=== PATIENT | female | born 1940 | race Caucasian/White ===

== ENCOUNTER 2023-01-06 08:27 | Day surgery (SDC) | payer MEDICARE, SELFPAY ==
--- NOTE | 2023-01-05 12:21 | HO.ANESPROP2 ---
Documented by User: Nikki Echevarria NP 01/05/23 12:29 HPI - Anesthesia Eval Consult details Narrative: 82yo F for Colonoscopy [facility] Past Medical History Medical History Anxiety COPD (chronic obstructive pulmonary disease) DMII (diabetes mellitus, type 2) DVT (deep venous thrombosis) Gallbladder cancer HLD (hyperlipidemia) HTN (hypertension) IBS (irritable bowel syndrome) ANA (mycobacterium avium-intracellulare) infection Osteoarthritis Osteoporosis Renal insufficiency Surgical History Surgical History H/O resection of liver History of cholecystectomy Social History Social History Advance Directives: No Advance Directives Information Provided: Yes Meds Allergies Allergy/AdvReac Type Severity Reaction Status Date / Time ampicillin Allergy Unknown Unknown Verified 01/05/23 12:24 NSAIDS (Non-Steroidal Allergy Unknown Unknown Verified 01/05/23 12:24 Anti-Inflamma Penicillins Allergy Unknown Unknown Verified 01/05/23 12:24 Home Medications Medication Instructions Recorded Confirmed Last Taken Type albuterol sulfate 90 mcg/actuation 2 puff inhalation QID PRN wheezing 01/05/23 01/05/23 Unknown History aerosol inhaler amlodipine 5 mg tablet 10 mg PO DAILY 01/05/23 01/05/23 Unknown History aspirin 81 mg chewable tablet 81 mg PO DAILY 01/05/23 01/05/23 Unknown History atenolol 25 mg tablet 50 mg PO DAILY 01/05/23 01/05/23 Unknown History atorvastatin 20 mg tablet 20 mg PO DAILY 01/05/23 01/05/23 Unknown History chromium picolinate 1,000 mcg 1,000 mcg PO DAILY 01/05/23 01/05/23 Unknown History tablet fluticasone propionate 55 1 inh inhalation BID 01/05/23 01/05/23 Unknown History mcg/actuation breath activated powder inhalr insulin aspart U-100 100 unit/mL subcut 01/05/23 01/05/23 Unknown History subcutaneous solution (Novolog U-100 Insulin aspart) lorazepam 0.5 mg tablet 1.5 mg PO BEDTIME 01/05/23 01/05/23 Unknown History metformin 500 mg tablet 500 mg PO QPM 01/05/23 01/05/23 Unknown History omega 0-art-ytp-fish oil 1,200 mg 1 cap PO 01/05/23 Unknown History (144 mg-216 mg) capsule (Fish Oil) oxycodone 5 mg tablet 5 mg PO Q4H PRN pain 01/05/23 01/05/23 Unknown History Exam Exam Date and Time: January 05, 2023 1221 Assessment and Plan Assessment Anesthesia Assessment: Chart Reviewed Documented by User: Sara Andrew MD 01/06/23 10:23 [facility] Past Medical History Medical History Anxiety COPD (chronic obstructive pulmonary disease) DMII (diabetes mellitus, type 2) DVT (deep venous thrombosis) Gallbladder cancer HLD (hyperlipidemia) HTN (hypertension) IBS (irritable bowel syndrome) ANA (mycobacterium avium-intracellulare) infection Osteoarthritis Osteoporosis Renal insufficiency Surgical History Surgical History H/O resection of liver History of cholecystectomy History of Problems with Anesthesia: No Social History Social History Advance Directives: No Advance Directives Information Provided: Yes Meds Allergies Allergy/AdvReac Type Severity Reaction Status Date / Time ampicillin Allergy Unknown Unknown Verified 01/05/23 12:24 NSAIDS (Non-Steroidal Allergy Unknown Unknown Verified 01/05/23 12:24 Anti-Inflamma Penicillins Allergy Unknown Unknown Verified 01/05/23 12:24 Home Medications Medication Instructions Recorded Confirmed Last Taken Type albuterol sulfate 90 mcg/actuation 2 puff inhalation QID PRN wheezing 01/05/23 01/05/23 Unknown History aerosol inhaler amlodipine 5 mg tablet 10 mg PO DAILY 01/05/23 01/05/23 Unknown History aspirin 81 mg chewable tablet 81 mg PO DAILY 01/05/23 01/05/23 Unknown History atenolol 25 mg tablet 50 mg PO DAILY 01/05/23 01/05/23 Unknown History atorvastatin 20 mg tablet 20 mg PO DAILY 01/05/23 01/05/23 Unknown History chromium picolinate 1,000 mcg 1,000 mcg PO DAILY 01/05/23 01/05/23 Unknown History tablet fluticasone propionate 55 1 inh inhalation BID 01/05/23 01/05/23 Unknown History mcg/actuation breath activated powder inhalr insulin aspart U-100 100 unit/mL subcut 01/05/23 01/05/23 Unknown History subcutaneous solution (Novolog U-100 Insulin aspart) lorazepam 0.5 mg tablet 1.5 mg PO BEDTIME 01/05/23 01/05/23 Unknown History metformin 500 mg tablet 500 mg PO QPM 01/05/23 01/05/23 Unknown History omega 0-nuk-cwg-fish oil 1,200 mg 1 cap PO 01/05/23 Unknown History (144 mg-216 mg) capsule (Fish Oil) oxycodone 5 mg tablet 5 mg PO Q4H PRN pain 01/05/23 01/05/23 Unknown History Exam Airway Mallampati Class: III TM Dist: >3cm Neck ROM: Limited Loose/Missing/Broken Teeth: No Heart: RRR Lungs: CTA Assessment and Plan Assessment Anesthesia Assessment: Anesthesia Plan Discussed Final Anesthetic Review History of Problems with Anesthesia: No NPO: Yes ASA Class: II Final Preanesthetic Review: Meds/Allgs Chart Reviewed, Consent Obtained/Reviewed and Anes Risks/Benef Reviewed Patient Risk: Low Procedure Risk: Low Anesthetic Plan Anesthetic Plan: MAC: Disposition: Standard PACU
[2023-01-06 09:59] VITALS: BMI 26.1
[2023-01-06 10:04] VITALS: BP 141/65; PULSE 79; RESP 18; TEMP 36.1; O2SAT 98
[2023-01-06 10:19] VITALS: BP 141/65; PULSE 79; RESP 18; TEMP 36.1; O2SAT 98; BMI 26.1
--- NOTE | 2023-01-06 10:25 | P.HPSUR_ITS ---
Pre-Procedural Eval Section A Date of Service: 01/06/23 Section B Chief Complaint: rectal bleeding Details of Present Illness: see H&P no changes Relevant Family History (Specify if Yes): No Relevant Social History: None Present Medications: see Short Stay Collaborative assessment Medical History: No relevant PMH History of Previous Operations: No relevant previous surgery Allergies: Allergies Allergy/AdvReac Type Severity Reaction Status Date / Time ampicillin Allergy Unknown Unknown Verified 01/05/23 12:24 NSAIDS (Non-Steroidal Allergy Unknown Unknown Verified 01/05/23 12:24 Anti-Inflamma Penicillins Allergy Unknown Unknown Verified 01/05/23 12:24 Review of Systems Sugical H&P ROS: Negative: Constitution, Cardiovascular, Respiratory, Neurological, Psychiatric, Hem-Onc, Allergic/Immunologic, Gastrointestinal, Gen itourinary, Musculoskeletal, Integumentary, Endocrine and Eyes/Ears/Nose/Throat Exam Surgical H&P Exam: Normal: HEENT, Normal: Heart, Normal: Lungs, Normal: Extremities, Normal: Abdomen, Normal: Skin and Normal: Neurological Plan Diagnosis/Plan: Unchanged I have reviewed the history and physical and performed a pertinent physical examination on my patient. No changes have occurred unless specified. Time Spent With Patient Time: Total time managing care of this patient today ____ minutes.
[2023-01-06] MEDS: Lactated Ringers 1,000 ML 100 ML IVCONT (10:30)
[2023-01-06 10:40] LABS: Glucose, Whole Blood 153 mg/dL (60-115)
--- NOTE | 2023-01-06 11:20 | PM.OP ---
Brief Operative Note Date of Service: 01/06/23 Pre-op diagnosis: rectal bleeding Post-op diagnosis: same Surgeon: Rios Gurrola Anesthesia: MAC Was an Geriatric Assistant used for this Procedure?: No Estimated blood loss (mL): 2 Pathology: other Condition: stable Disposition: PACU
[2023-01-06 11:25] VITALS: BP 120/59; PULSE 76; RESP 20; TEMP 36.2; O2SAT 100
--- NOTE | 2023-01-06 11:40 | OP_ITS ---
DATE OF SERVICE: 01/06/2023 SURGEON: Rios Gurrola MD INDICATIONS: Rectal bleeding. PREOPERATIVE DIAGNOSIS: POSTOPERATIVE DIAGNOSIS: PROCEDURE PERFORMED: Colonoscopy to the terminal ileum with biopsy. ESTIMATED BLOOD LOSS: COMPLICATIONS: ANESTHESIA: Monitored anesthesia care. ASSISTANTS: SPECIMENS: DESCRIPTION OF PROCEDURE: A history and physical performed. The risks and benefits of the procedure were explained to the patient. Informed consent was obtained. The patient was placed in the left lateral decubitus position. A digital rectal exam was performed and was found to be normal. The Olympus pediatric video colonoscope was introduced into the rectum and advanced to the cecum. The cecum was identified by transillumination, palpation, and identification of the ileocecal valve. Examination was performed and the scope was removed. She tolerated the procedure well and was taken to recovery in stable condition. FINDINGS: The terminal ileum was examined and appeared normal. The visualized colonic mucosa was normal. There was a moderate amount of formed liquid stool in the sigmoid colon. There was extensive diverticulosis in this area and the colon was quite tortuous. This made the examination challenging and limited the sensitivity of the examination for detection of small polyps. The liquid stool was washed and suctioned as best possible. A single polyp measuring less than 5 mm was identified at 30 cm from the anal verge, removed with biopsy forceps. No other polyps were identified. There were some small to moderate-sized internal hemorrhoids on retroflex examination, likely the source of the patient's bleeding. IMPRESSION: 1. Colon polyp. 2. Diverticulosis. RECOMMENDATION: Follow up the biopsy results. MD JEROME Marroquin/MODL / [id number]
[2023-01-06 11:45] VITALS: BP 141/64; PULSE 82; RESP 16; TEMP 36.1; O2SAT 98
== END 2023-01-06 12:05 | disposition home or self-care (01) ==
PROVIDERS: PCP Internal Medicine; Visit Provider Internal Medicine Gastroenterology
PROC: 0DJD8ZZ Inspection of Lower Intestinal Tract, Via Natural or Artificial Opening Endoscopic (ICD-10-PCS; CPT 45378; principal; 2023-01-06 09:30)
DX: K62.5 Hemorrhage of anus and rectum (principal); Z86.010 Personal history of colon polyps; Z80.0 Family history of malignant neoplasm of digestive organs; K63.5 Polyp of colon; K57.30 Diverticulosis of large intestine without perforation or abscess without bleeding; K64.8 Other hemorrhoids; C23 Malignant neoplasm of gallbladder; K86.2 Cyst of pancreas; K58.9 Irritable bowel syndrome, unspecified; I10 Essential (primary) hypertension; E78.00 Pure hypercholesterolemia, unspecified; E11.9 Type 2 diabetes mellitus without complications; J44.9 Chronic obstructive pulmonary disease, unspecified; N28.9 Disorder of kidney and ureter, unspecified; M81.0 Age-related osteoporosis without current pathological fracture; F41.1 Generalized anxiety disorder; Z90.49 Acquired absence of other specified parts of digestive tract; Z79.82 Long term (current) use of aspirin; Z79.4 Long term (current) use of insulin; Z79.51 Long term (current) use of inhaled steroids; Z79.899 Other long term (current) drug therapy; Z88.0 Allergy status to penicillin; Z88.1 Allergy status to other antibiotic agents
CPT/HCPCS: 45380; 82947; 88305